=== PATIENT | female | born 1965 | race Caucasian/White ===

== ENCOUNTER 2018-12-04 11:06 | Emergency (ER) | payer MEDICAID, OTHER ==
[~2018-12-04] VITALS: Ht 154.9 cm; Wt 78.5 kg
[2018-12-04 11:09] VITALS: BP 172/90
--- NOTE | 2018-12-04 11:15 | NUR ---
PT AMBULATED TO ER BED 02
--- NOTE | 2018-12-04 11:20 | NUR ---
C/O L ARM PAIN X3 DAYS, DENIES TRAUMA/INJURY. PER PT SHE WOKE UP 3 DAYS AGO WITH THE ARM PAIN. PT STATES SHE TOOK A NORCO 10/325 LAST NIGHT AND IT PROVIDED SOME PAIN RELIEF. DENIES NUMBNESS/TINGLING, PT HAS FULL ROM WITH SOME PAIN, CAP REFIL <3 SECONDS, +2 RADIAL PULSE, DENIES N/V/D; SKIN IS PINK/WARM/DRY; AAOX4 WITH EVEN AND STEADY GAIT; LUNGS CLEAR BL; HR EVEN AND REGULAR; BLOOD PRESSURE SLIGHTLY ELEVATED 161/74, ERMD AWARE. PATIENT POSITIONED FOR COMFORT; HOB ELEVATED; BEDRAILS UP X1; BED DOWN. ER MD MADE AWARE OF PT STATUS.
[2018-12-04] MEDS ORDERED: MORPHINE SULFATE 4 MG/ML SYR IM ONE (12:55)
--- NOTE | 2018-12-04 13:13 | NUR ---
IM MEDS GIVEN-NADR AT THIS TIME
[2018-12-04 13:34] VITALS: BP 155/72
--- NOTE | 2018-12-04 13:35 | NUR ---
Patient discharged with v/s stable. Written and verbal after care instructions given and explained. Patient alert, oriented and verbalized understanding of instructions. Ambulatory with steady gait. All questions addressed prior to discharge. ID band removed. Patient advised to follow up with PMD. Rx of CIPRO, NORCO given. Patient educated on indication of medication including possible reaction and side effects. Opportunity to ask questions provided and answered.
== END 2018-12-04 13:35 | disposition home or self-care (01) ==
LOC: MED 11:06
DX: M79.602 Pain in left arm (principal); N39.0 Urinary tract infection, site not specified
CPT/HCPCS: 81002; 81025; 96372; 99283; J2270

== ENCOUNTER 2019-07-09 05:46 | Day surgery (SDC) | payer OTHER ==
[~2019-07-09] VITALS: Ht 162.6 cm; Wt 78.9 kg
[2019-07-09] MEDS ORDERED: LIDOCAINE 2% 100 MG/5 ML UJET TP ONE (07:38)
[2019-07-09] MEDS ORDERED: fentaNYL 0.05 MG/ML VIAL ONE (07:38)
[2019-07-09] MEDS ORDERED: MIDAZOLAM 2 MG/2 ML VIAL ONE (07:38)
[2019-07-09] MEDS ORDERED: fentaNYL 0.05 MG/ML VIAL IVP ONE (09:50)
[2019-07-09] MEDS ORDERED: MIDAZOLAM 2 MG/2 ML VIAL IVP ONE (09:50)
== END 2019-07-09 09:00 | disposition home or self-care (01) ==
LOC: MDS 05:46 → MMU 06:04 → MDS 09:00
PROVIDERS: ATTEND Internal Medicine Gastroenterology
DX: Z12.11 Encounter for screening for malignant neoplasm of colon (principal); D12.8 Benign neoplasm of rectum; D12.5 Benign neoplasm of sigmoid colon; K29.70 Gastritis, unspecified, without bleeding; E66.9 Obesity, unspecified; K57.30 Diverticulosis of large intestine without perforation or abscess without bleeding; Z98.84 Bariatric surgery status; Z90.49 Acquired absence of other specified parts of digestive tract; Z68.30 Body mass index [BMI] 30.0-30.9, adult
CPT/HCPCS: 36415; 43239; 45385; 81025; 86677; J2250; J3010

== ENCOUNTER 2021-03-12 13:36 | Emergency (ER) | payer MEDICAID, OTHER ==
[~2021-03-12] VITALS: Ht 157.5 cm; Wt 83.9 kg
[2021-03-12 13:42] VITALS: BP 134/84
--- NOTE | 2021-03-12 13:42 | NUR ---
TO BED AMBULATORY
--- NOTE | 2021-03-12 13:55 | NUR ---
EMT at bedside for EKG.
--- NOTE | 2021-03-12 14:05 | NUR ---
55 y/o F BIB self from home with c/c left forearm pain and chest pain. Patient A&Ox4, ambulatory, states this morning she began experiencing left sided chest pain that she rates 8/10, pressure/intermittent, non-radiating. Patient also states dizziness and anxiety. Patient reports left side forearm numbness/tingling x 2 days. Patient reports pain cream without relief. Denies N/V/D, fever, chills, headache, dysuria. Last BM today normal. Denies any medications prior to arrival. Bed locked in lowest position, side rails x1, call light in reach. PMH/Meds/Allergies: Denies Sx: Gastric bypass 2017
--- NOTE | 2021-03-12 14:08 | NUR ---
ERMD is evaluating patient at bedside.
[2021-03-12] MEDS ORDERED: NITROGLYCERIN 0.4 MG TAB SL ONE (14:15)
[2021-03-12] MEDS ORDERED: ASPIRIN 325 MG TAB PO ONE (14:15)
[2021-03-12] MEDS ORDERED: LORazepam 0.5 MG TAB PO ONE (14:20)
--- NOTE | 2021-03-12 14:25 | NUR ---
Lab at bedside.
[2021-03-12 14:48] LABS: BASOPHILS # (AUTO) 0.2 K/uL (0.00-0.22); BASOPHILS % (AUTO) 2.7 % (0.0-2.0); EOSINOPHILS # (AUTO) 0.1 K/uL (0-0.4); EOSINOPHILS % (AUTO) 1.3 % (0.0-4.0); HEMATOCRIT 34.2 % (36-48); HEMOGLOBIN 11.4 g/dL (12.0-16.0); LYMPHOCYTES # (AUTO) 1.7 K/uL (2.5-16.5); LYMPHOCYTES % (AUTO) 24.9 % (20.5-51.1); MEAN CORPUSCULAR HEMOGLOBIN 28 pg (27-31); MEAN CORPUSCULAR HGB CONC 33 g/dL (33-37); MEAN CORPUSCULAR VOLUME 84.3 fL (80-94); MONOCYTES # (AUTO) 0.3 K/uL (0.8-1.0); MONOCYTES % (AUTO) 4.8 % (1.7-9.3); NEUTROPHILS # (AUTO) 4.4 K/uL (1.8-7.7); NEUTROPHILS % (AUTO) 66.3 % (42.2-75.2); PLATELET COUNT (AUTO) 289 K/uL (140-450); RED BLOOD CELL COUNT(AUTO) 4.06 MIL/uL (4.20-5.40); RED CELL DISTRIBUTION WIDTH 14.9 % (11.6-13.7); WHITE BLOOD COUNT (AUTO) 6.6 K/uL (4.8-10.8)
[2021-03-12 15:08] LABS: ALBUMIN 3.9 g/dL (3.4-5.0); ANION GAP 10.9 (8-16); CARBON DIOXIDE 27.1 mmol/L (21-32); CREATININE 0.6 mg/dL (0.6-1.3); TOTAL BILIRUBIN 0.3 mg/dL (0.0-1.0)
--- NOTE | 2021-03-12 15:36 | NUR ---
Dr. Chavez made aware of HR 47, at bedside evaluating patient at this time.
--- NOTE | 2021-03-12 15:39 | NUR ---
Acknowledged repeat Troponin 2 hrs from initial draw: 1425.
--- NOTE | 2021-03-12 15:40 | NUR ---
Patient reports pain to left upper arm; Dr. Chavez at bedside made aware
[2021-03-12] MEDS ORDERED: ATROPINE 0.4 MG/ML VIAL IVP ONE (15:45)
[2021-03-12] MEDS ORDERED: ATROPINE 1 MG/10 ML SYR IVP ONE (15:55)
--- NOTE | 2021-03-12 16:35 | NUR ---
Lab at bedside.
--- NOTE | 2021-03-12 16:45 | NUR ---
Patient resting in position of comfort. supply planner remains in place; HR 51. RR even/unlabored. Bed locked in lowest position, side rails x 1, call light in reach.
[2021-03-12] MEDS ORDERED: HYDR-1093 PO (17:39)
--- NOTE | 2021-03-12 17:50 | NUR ---
Dr. Chavez is reevaluating patient at bedside.
[2021-03-12] MEDS ORDERED: ACETAMINOPHEN EXTRA STRENGTH 500 MG TAB PO ONE (18:00)
[2021-03-12 18:05] VITALS: BP 116/66
== END 2021-03-12 18:05 | disposition home or self-care (01) ==
LOC: MED 13:36
DX: R00.1 Bradycardia, unspecified (principal); Z98.84 Bariatric surgery status
CPT/HCPCS: 36415; 71045; 80053; 84484; 85025; 93005; 96374; 99285; J0461

== ENCOUNTER 2021-03-26 20:05 | Inpatient (IN) | payer OTHER, SELFPAY ==
[~2021-03-26] VITALS: Ht 157.5 cm; Wt 88.5 kg
[~2021-03-26 20:05] MED LIST: HYDR-1093 PO
[2021-03-26 20:50] VITALS: BP 94/68
--- NOTE | 2021-03-26 20:50 | NUR ---
TO TENT AMBULATORY
[2021-03-26] MEDS ORDERED: NACL 0.9% 1,000 ML IV ONE (21:45)
[2021-03-26 22:16] LABS: BASOPHILS % (AUTO) 0.4 % (0.0-2.0); HEMATOCRIT 37.8 % (36-48); HEMOGLOBIN 12.4 g/dL (12.0-16.0); LYMPHOCYTES # (AUTO) 1.1 K/uL (2.5-16.5); LYMPHOCYTES % (AUTO) 21.9 % (20.5-51.1); MEAN CORPUSCULAR HEMOGLOBIN 27 pg (27-31); MEAN CORPUSCULAR HGB CONC 33 g/dL (33-37); MEAN CORPUSCULAR VOLUME 83.7 fL (80-94); MONOCYTES # (AUTO) 0.4 K/uL (0.8-1.0); MONOCYTES % (AUTO) 7.6 % (1.7-9.3); NEUTROPHILS # (AUTO) 3.5 K/uL (1.8-7.7); NEUTROPHILS % (AUTO) 70.1 % (42.2-75.2); PLATELET COUNT (AUTO) 245 K/uL (140-450); RED BLOOD CELL COUNT(AUTO) 4.52 MIL/uL (4.20-5.40); RED CELL DISTRIBUTION WIDTH 14.6 % (11.6-13.7)
[2021-03-26 22:37] LABS: ALBUMIN 4.1 g/dL (3.4-5.0); ANION GAP 14.4 (8-16); CARBON DIOXIDE 26.7 mmol/L (21-32); CREATININE 1.1 mg/dL (0.6-1.3); POTASSIUM 4.1 mmol/L (3.5-5.1); TOTAL BILIRUBIN 0.4 mg/dL (0.0-1.0)
--- NOTE | 2021-03-27 00:47 | NUR ---
Dr. Vivas examining patient.
--- NOTE | 2021-03-27 00:47 | NUR ---
PT W/C ASSISTED TO ER BED 1
--- NOTE | 2021-03-27 00:48 | NUR ---
Addie cantu in [facility] - 03/27/21 at 0048 by SHAYNE PT W/C ASSISTED TO BED #1
[2021-03-27] MEDS ORDERED: NACL 0.9% 1,000 ML IV ONE (00:50)
--- NOTE | 2021-03-27 01:20 | NUR ---
55 YO/F BIB SELF ACCOMPANIED BY W CO DIZZYNESS AND LOW BLOOD PRESSURE X4DAYS. PATIENT ALSO REPORTS FEVERS, SLIGHT COUGH, HEADACHE BODY ACHES 9/10. PATIENT ALSO REPORTS EXPERIENCING DIARRHEA YESTERDAY. PATIENT DENIES N/V, CHEST PAIN OR SOB. PATIENT DENIES LOC. PATIENT AOX4, BREATHING EVEN AND UNLABORED, LUNG SOUNDS CLEAR THROUGHOUT. BOWEL SOUNDS PRESENT. PATIENT CONNECTED TO MONITOR BP AT 91/56, 60HR, 95 O2, 20 RR. PATIENT LAYING IN BED LOCKED IN LOWEST POSITION X2 SIDERAILS UP FOR PATIENT SAFETY, W 2L OF NS RUNNNING TO L WRIST IV. WILL CONTINUE TO MONITOR. PMH:DENIES NKA
[2021-03-27] MEDS ORDERED: ACETAMINOPHEN EXTRA STRENGTH 500 MG TAB PO ONE (02:50)
--- NOTE | 2021-03-27 03:10 | NUR ---
PATIENT PROVIDED BEDSIDE COMMODE, PATIENT AMBULATED TO BEDSIDE COMMODE W STEADY GAIT. PATIENT REPORTS SHE FEELS BETTER, SLIGHT DIZZINESS.
[2021-03-27 04:05] LABS: APPEARANCE,URINE SL CLOUDY (CLEAR); BILIRUBIN,URINE NEGATIVE (NEGATIVE); BLOOD, URINE NEGATIVE (NEGATIVE); COLOR,URINE YELLOW (YELLOW); LEUKOCYTE ESTERASE ,URINE 3+ (NEGATIVE); NITRITE, URINE NEGATIVE (NEGATIVE); UGLUCOSE NEGATIVE (NEGATIVE)
[2021-03-27 04:11] LABS: RBC,URINE 0-5 /HPF (0-5)
[2021-03-27] MEDS ORDERED: cefTRIAXone 1,000 MG VIAL ONE (05:03)
--- NOTE | 2021-03-27 06:25 | NUR ---
Blood cultures drawn and walked to lab.
[2021-03-27] MEDS ORDERED: ONDANSETRON 4 MG/2 ML VIAL IVP PRN (06:35)
[2021-03-27] MEDS ORDERED: MAG SULF 2000 MG/WATER PREMIX 50 ML IV PRN (06:35)
[2021-03-27] MEDS ORDERED: MAGNESIUM OXIDE 400 MG TAB PO PRN (06:35)
[2021-03-27] MEDS ORDERED: KCL 20 MEQ/WATER INJ PREMIX 200 ML IV PRN (06:35)
--- NOTE | 2021-03-27 07:20 | NUR ---
Pt report given to OLIVERIO GORDILLO. Transfer of care at this time.
--- NOTE | 2021-03-27 07:32 | NUR ---
ASSUMED CARE OF THIS PATIENT, REPORT RECEIVED. ARAKSIA IS RESTING QUIETLY, TALKING TO FAMILY VIA PHONE, PATIENT IS TALKATIVE AND APPEARS TO BE IN NO DISTRESS, VSS, SKIN IS WARM, DRY, RESP EVEN AND UNLABORED, VOICES NO NEEDS AT THIS TIME.
[2021-03-27] MEDS: NACL 0.9% 1,000 ML IV SCH ×2 (08:57→19:05)
--- NOTE | 2021-03-27 11:06 | NUR ---
OOB, BM X 1, SAT IN A CHAIR FOR A WHILE. ASSISTED BACK TO BED WITH ASSIST, POSITIONED FOR COMFORT, C/O FEELING COLD, TEMP 100.1, REQUESTED TYLENOL.
--- NOTE | 2021-03-27 11:53 | NUR ---
CHECKED ON PATIENT, RESTING COMFORTABLY, OFFERS NO NEEDS AT THIS TIME. NSR WITH OCC PVC'S NOTED PER MONITOR, ONE PAIR NOTED.
[2021-03-27] MEDS: ACETAMINOPHEN 325 MG TAB PO PRN (12:25)
--- NOTE | 2021-03-27 13:40 | NUR ---
RESTING QUIETLY, IVF INFUSING TO PATENT CLEAR IV, TEMP MONITORED.
--- NOTE | 2021-03-27 14:46 | NUR ---
PATIENT REPORTS FEELING BETTER, SITTING UP TO EAT. REPORT CALLED TO HANNAH, READY FOR TRANSPORT TO ROOM 114.
--- NOTE | 2021-03-27 14:49 | NUR ---
Patient will be admitted to care of . Admited to TELE ISOLATION. Will go to room. Belongings list completed. Report to HANNAH Jacobo.
--- NOTE | 2021-03-27 15:00 | NUR ---
RECEIVED REPORT FROM ER NURSE FOR CONTINUITY OF CARE. PT ARRIVED TO UNIT VIA GURNEY. A&OX4. ALERT AND AWAKE. ON RA WITH BREATHING UNLABORED. PT IS AMBULATORY INDEPENDENTLY. SKIN IS WARM, DRY, AND INTACT. IV IS IN THE LEFT WRIST 22 GAUGE RUNNING NS AT 80 ML PER HOUR PER ORDER. PT IS STABLE AT THIS TIME. DROPLET PRECAUTIONS FOR COVID POSITIVE. PLAN OF CARE DISCUSSED.
[2021-03-27 15:20] VITALS: BP 117/81
[2021-03-27 16:00] VITALS: BP 114/85
--- NOTE | 2021-03-27 16:27 | NUR ---
PATIENT HAS BEEN SCREENED AND CATEGORIZED MODERATE NUTRITION RISK. PATIENT WILL BE SEEN WITHIN 3-5 DAYS OF ADMISSION. 03/29/21 03/31/[address]
--- NOTE | 2021-03-27 17:00 | NUR ---
PT RECEIVED FOOD FROM THROUGH FRONT LOBBY. PT WAS ABLE TO EAT 25% OF FOOD. PT STATES SHE IS DRINKING LOTS OF WATER. TEMP IS AT 99.7 F. FEVER IS GOING DOWN. WILL CONTINUE TO MONITOR PT.
--- NOTE | 2021-03-27 19:10 | NUR ---
ENDORSED PT TO MACHINE WHITENER NURSE FOR CONTINUITY OF CARE. PT IS STABLE. PLAN OF CARE DISCUSSED.
--- NOTE | 2021-03-27 19:15 | NUR ---
RECEIVED REPORT FROM AM SHIFT NURSE. PATIENT RESTING IN BED. NO SOB NOTED. IVF NS INFUSING AT 80 ML ON THE LEFT WRIST TOLERATING WELL. SKIN WARM AND DRY TO TOUCH. AFEBRILE. SAFETY MEASURES IN PLACE. CALL LIGHT WITHIN REACH.
[2021-03-27 20:00] VITALS: BP 130/86
--- NOTE | 2021-03-27 20:02 | NUR ---
COMPLAINED OF MILD HEADACHE TYLENOL 650MG PRN GIVEN.
[2021-03-28] VITALS: BP 116/86
--- NOTE | 2021-03-28 03:03 | NUR ---
PATIENT IS ASLEEP. NO S/S OF RESPIRATORY DISTRESS. ALL SAFETY PRECAUTIONS IN PLACE. CALL LIGHT WITHIN REACH.
[2021-03-28 04:00] VITALS: BP 128/77
[2021-03-28] MEDS: HYDROcodone/APAP 5/325 MG 1 TAB TAB PO PRN ×3 (04:49→20:45)
[2021-03-28] MEDS: NACL 0.9% 1,000 ML IV SCH ×3 (05:24→20:45)
[2021-03-28] MEDS: MORPHINE SULFATE 4 MG/ML SYR IVP PRN (06:05)
[2021-03-28 07:01] LABS: BASOPHILS % (AUTO) 0.4 % (0.0-2.0); HEMATOCRIT 29.3 % (36-48); HEMOGLOBIN 9.8 g/dL (12.0-16.0); LYMPHOCYTES # (AUTO) 1.2 K/uL (2.5-16.5); LYMPHOCYTES % (AUTO) 28.3 % (20.5-51.1); MEAN CORPUSCULAR HEMOGLOBIN 27 pg (27-31); MEAN CORPUSCULAR HGB CONC 33 g/dL (33-37); MEAN CORPUSCULAR VOLUME 81.9 fL (80-94); MONOCYTES # (AUTO) 0.3 K/uL (0.8-1.0); MONOCYTES % (AUTO) 6.6 % (1.7-9.3); NEUTROPHILS # (AUTO) 2.7 K/uL (1.8-7.7); NEUTROPHILS % (AUTO) 64.7 % (42.2-75.2); PLATELET COUNT (AUTO) 163 K/uL (140-450); RED BLOOD CELL COUNT(AUTO) 3.58 MIL/uL (4.20-5.40); RED CELL DISTRIBUTION WIDTH 14.3 % (11.6-13.7); WHITE BLOOD COUNT (AUTO) 4.2 K/uL (4.8-10.8)
[2021-03-28 07:22] LABS: PROTHROMBIN TIME 10.4 secs (10.8-13.4)
--- NOTE | 2021-03-28 07:30 | NUR ---
ENDORSED TO THE AM RN FOR CONTINUITY OF CARE. PATIENT IS STABLE.
--- NOTE | 2021-03-28 07:32 | NUR ---
RECEIVED REPORT FROM HYPERION ANALYST NURSE FOR CONTINUITY OF CARE. A&OX4, ABLE TO MAKE NEEDS KNOWN. RESPIRATIONS EVEN AND UNLABORED. ON RA WITH BREATHING UNLABORED. PT IS AMBULATORY INDEPENDENTLY. SKIN IS WARM, DRY, AND INTACT. IV IS IN THE LEFT WRIST 22 GAUGE RUNNING NS AT 80 ML PER HOUR PER ORDER. PT IS STABLE AT THIS TIME AND DENIES PAIN. PLAN OF CARE DISCUSSED. DROPLET PRECAUTIONS IN PLACE. SAFETY PRECAUTIONS IN PLACE. CALL LIGHT WITHIN REACH. WILL CONTINUE TO MONITOR.
[2021-03-28 07:33] LABS: ANION GAP 14.2 (8-16); CREATININE 0.5 mg/dL (0.6-1.3); POTASSIUM 3.2 mmol/L (3.5-5.1); TOTAL BILIRUBIN 0.2 mg/dL (0.0-1.0)
[2021-03-28 08:00] VITALS: BP 95/59
[2021-03-28] MEDS: POTASSIUM CHLORIDE 10 MEQ TABER PO PRN (08:55)
--- NOTE | 2021-03-28 09:30 | NUR ---
NO SCHEDULED MEDICATIONS GIVEN. ADMINISTERED K-DUR FOR PATIENT'S K LVL OF 3.2. PT IS STABLE. NO DISTRESS NOTED. WILL CONTINUE TO MONITOR.
[2021-03-28] MEDS: ACETAMINOPHEN 325 MG TAB PO PRN ×2 (11:50→20:45)
--- NOTE | 2021-03-28 11:50 | NUR ---
PATIENT COMPLAINED OF BEAULIEU 3/10. ADMINISTERED PRN PAIN MEDICATIONS PER MD ORDERED.
--- NOTE | 2021-03-28 11:55 | NUR ---
DC PLANNING: PATIENT IN COVID ISOLATION, UNABLE TO REACH BY PHONE. CM SPOKE WITH HER RHETT BY PHONE, PATIENT IS INDEPENDENT IN ALL ACTIVITIES, HAS H/O GASTRIC SLEEVE, NO OTHER HEALTH ISSUES. NO DME, STATES HIS COVID TEST IS PENDING RESULTS AND HAS HAD HIS FIRST VACCINATION OF A SERIES OF TWO. IS PREPARED FOR PATIENT TO COME HOME, ENCOURAGED HIM TO OFFER PATIENT FLUIDS, MAKE SURE SHE HAS PO INTAKE. RHETT STATES HE IS PREPARED FOR HER COVID MANAGEMENT AT HOME. CM WILL FOLLOW FOR NEEDS.
[2021-03-28 12:00] VITALS: BP 97/57
--- NOTE | 2021-03-28 13:30 | NUR ---
CHECKED ON PATIENT. PATIENT ASLEEP. NOTED CHEST RISE AND FALL. NO DISTRESS NOTED. WILL CONTINUE TO MONITOR.
--- NOTE | 2021-03-28 15:29 | NUR ---
PATIENT COMPLAINED OF FEELING HOT. CHECKED PT TEMPERATURE AND IT WAS 101.0 F. PLACED ICE PACKS ON PATIENT'S AXILLARY AREA AND ONE ON THE HEAD. COOLING MEASURES IN PLACE. WILL RECHECK TEMP IN THE NEXT HOUR.
--- NOTE | 2021-03-28 15:34 | NUR ---
PATIENT COMPLAINED OF GENERALIZED PAIN 6/10. ADMINISTERED PRN PAIN MEDICATIONS PER MD ORDERED.
[2021-03-28 16:00] VITALS: BP 103/55
--- NOTE | 2021-03-28 17:06 | NUR ---
CHECKED ON PATIENT. PATIENT IS STABLE. NO DISTRESS NOTED. WILL CONTINUE TO MONITOR.
--- NOTE | 2021-03-28 19:12 | NUR ---
ENDORSED TO MECHANICAL INSPECTOR NURSE FOR CONTINUITY OF CARE. PT IS STABLE.
--- NOTE | 2021-03-28 19:14 | NUR ---
RECEIVED REPORT FROM AM NURSE. PATIENT ON BED RESTING. NO S/S OF RESPIRATORY DISTRESS. SKIN WARM AND DRY TO TOUCH. AFEBRILE. STILL WITH MILD GENERALIZED PAIN. WILL CONTINUE TO MONITOR.
[2021-03-28 20:00] VITALS: BP 92/58
--- NOTE | 2021-03-28 20:45 | NUR ---
COMPLAINED OF MODERATE PAIN, GENERALIZED, MEDICATED. PATIENT IS FEBRILE, MEDICATED. COOLING MEASURES RENDERED.
[2021-03-29] VITALS: BP 95/52
[2021-03-29 04:00] VITALS: BP 100/62
--- NOTE | 2021-03-29 04:00 | NUR ---
PATIENT WITH ON AND OFF FEVER, MEDICATED AND COOLING MEASURES DONE.
[2021-03-29] MEDS: ACETAMINOPHEN 325 MG TAB PO PRN ×2 (04:42→16:57)
[2021-03-29 06:34] LABS: BASOPHILS % (AUTO) 0.5 % (0.0-2.0); HEMATOCRIT 29.6 % (36-48); HEMOGLOBIN 9.9 g/dL (12.0-16.0); LYMPHOCYTES # (AUTO) 1.1 K/uL (2.5-16.5); LYMPHOCYTES % (AUTO) 25.8 % (20.5-51.1); MEAN CORPUSCULAR HEMOGLOBIN 28 pg (27-31); MEAN CORPUSCULAR HGB CONC 34 g/dL (33-37); MONOCYTES # (AUTO) 0.2 K/uL (0.8-1.0); MONOCYTES % (AUTO) 5.2 % (1.7-9.3); NEUTROPHILS # (AUTO) 2.9 K/uL (1.8-7.7); NEUTROPHILS % (AUTO) 68.5 % (42.2-75.2); PLATELET COUNT (AUTO) 166 K/uL (140-450); RED BLOOD CELL COUNT(AUTO) 3.61 MIL/uL (4.20-5.40); RED CELL DISTRIBUTION WIDTH 14.4 % (11.6-13.7); WHITE BLOOD COUNT (AUTO) 4.3 K/uL (4.8-10.8)
[2021-03-29 06:58] LABS: PROTHROMBIN TIME 10.1 secs (10.8-13.4)
[2021-03-29 07:11] LABS: ALBUMIN 2.9 g/dL (3.4-5.0); ANION GAP 13.3 (8-16); CREATININE 0.6 mg/dL (0.6-1.3); MAGNESIUM 1.9 mg/dL (1.8-2.4); POTASSIUM 3.3 mmol/L (3.5-5.1); TOTAL BILIRUBIN 0.3 mg/dL (0.0-1.0)
--- NOTE | 2021-03-29 07:15 | NUR ---
RECEIVED BEDSIDE REPORT FROM BOX TOE CEMENTER NURSE FOR CONTINUITY OF CARE. PT IS AWAKE AND ALERT, A&OX4. ON TELE MONITOR. ON RA WITH BREATHING UNLABORED. PT IS AMBULATORY INDEPENDENTLY. SKIN IS WARM, DRY, AND INTACT. IV IS IN THE LEFT WRIST 22 GAUGE RUNNING NS AT 80 ML PER HOUR PER ORDER. PT IS STABLE. PLAN OF CARE DISCUSSED.
--- NOTE | 2021-03-29 07:24 | NUR ---
ENDORSED TO AM RN FOR CONTINUITY OF CARE. PATIENT IS IN STABLE CONDITION.
[2021-03-29 08:00] VITALS: BP 98/60
[2021-03-29] MEDS: POTASSIUM CHLORIDE 10 MEQ TABER PO PRN (08:24)
--- NOTE | 2021-03-29 08:24 | NUR ---
K DUR 40 MEQ WAS GIVEN ORDERED PRN FOR POTASSIUM LEVEL OF 3.3. MEDICATION EDUCATION WAS PROVIDED AND PT VERBALIZED UNDERSTANDING.
[2021-03-29] MEDS: NACL 0.9% 1,000 ML IV SCH ×2 (08:36→22:00)
--- NOTE | 2021-03-29 09:30 | NUR ---
PT IS AWAKE AND ALERT. DENIES ANY PAIN AT THIS TIME. BREATHING UNLABORED ON RA. IV IS INTACT. COOLING MEASURES IMPLEMENTED FOR FEVER OF 99.0 F. WILL CONTINUE TO MONITOR.
--- NOTE | 2021-03-29 11:24 | NUR ---
PT IS UP TO THE RESTROOM. NO RESPIRATORY DISTRESS NOTED. BREATHING IS UNLABORED ON RA. PT USING IV POLE FOR STABILITY. IV IS PATENT AND INFUSING ORDERED. GAIT IS STEADY.
[2021-03-29 12:00] VITALS: BP 114/71
[2021-03-29] MEDS: HYDROcodone/APAP 5/325 MG 1 TAB TAB PO PRN (12:25)
--- NOTE | 2021-03-29 12:25 | NUR ---
PT STATES SHE HAS PAIN ALL OVER HER BODY AT A SCALE OF 6/10. PT ALSO STATES THAT SHE HAS A HEADACHE. PT'S TEMP IS 100.8 F. PT WAS GIVEN NORCO FOR PAIN AND FEVER. COOLING MEASURES WERE PLACED. WILL CONTINUE TO MONITOR.
--- NOTE | 2021-03-29 14:30 | NUR ---
PT IS ASLEEP IN SEMI FOWLERS POSITION. NO RESPIRATORY DISTRESS NOTED. CHEST RISE AND FALL IS SYMMETRICAL. PT IS ON RA. PT IS STABLE.
[2021-03-29 16:00] VITALS: BP 108/60
--- NOTE | 2021-03-29 16:13 | NUR ---
ROUNDED ON PT. SHE IS LAYING IN BED ON CELL PHONE. NO DISTRESS NOTED. BREATHING IS UNLABORED. NO COUGHING AT THIS TIME. PT DENIES PAIN. WILL CONTINUE TO MONITOR.
--- NOTE | 2021-03-29 16:57 | NUR ---
PT WAS GIVEN TYLENOL FOR FEVER OF 101.5 F. COOLING MEASURES IMPLEMENTED. WILL MONITOR TEMP.
--- NOTE | 2021-03-29 18:21 | NUR ---
ROUNDED ON PT. SHE IS SLEEPING. NO DISTRESS NOTED. NO COUGHING OR SOB. PT IS ON RA. O2 SAT IS 97%. PT IS STABLE.
[2021-03-29] MEDS ORDERED: remdesivir COMMUNICATION ORDER 1 EA MISC MC PRN (18:45)
--- NOTE | 2021-03-29 18:55 | NUR ---
RECEIVED A PHONE CALL FROM PHARMACY. THE PHARMACIST STATED THAT THE PT DOES NOT MEET THE CRITERIA FOR REMDESIVIR BECAUSE SHE IS ON RA AND THE O2 SAT IS ABOVE 94%. SHE ALSO SAID THAT SHE WILL HAVE TO VERIFY WITH HER PRIVATE EYE IN THE MORNING. RELAYED THIS INFORMATION TO DR. MARSHALL. DOCTOR IS AWARE.
--- NOTE | 2021-03-29 19:15 | NUR ---
ENDORSED PT TO CLINICAL ACCOUNT LIAISON NURSE FOR CONTINUITY OF CARE. PT IS STABLE. PLAN OF CARE DISCUSSED.
--- NOTE | 2021-03-29 19:20 | NUR ---
RECEIVED REPORT FROM AM NURSE. FOR CONTINUITY OF CARE. PATIENT IN BED AWAKE, NO S/S OF SOB NOTED. SAFETY MEASURES IN PLACE. CALL LIGHT WITHIN REACH. NO COMPLAINTS OF PAIN AT THIS TIME.
[2021-03-29 20:00] VITALS: BP 118/73
--- NOTE | 2021-03-29 21:30 | NUR ---
IV PULLED OUT, REINSERTED
[2021-03-29] MEDS: ALBUMIN HUMAN 25% 100 ML IV SCH (21:50)
[2021-03-30] VITALS: BP 106/64
[2021-03-30] MEDS: MORPHINE SULFATE 4 MG/ML SYR IVP PRN ×2 (00:39→18:45)
--- NOTE | 2021-03-30 00:39 | NUR ---
COMPLAINED OF SEVERE PAIN, MEDICATED WITHI MORPHINE ORDERED. AFEBRILE. CALL LIGHT WITHIN REACH.
[2021-03-30 04:00] VITALS: BP 104/66
[2021-03-30] MEDS: ALBUMIN HUMAN 25% 100 ML IV SCH ×2 (04:41→13:41)
[2021-03-30] MEDS: ACETAMINOPHEN 325 MG TAB PO PRN ×2 (04:55→11:07)
[2021-03-30 06:51] LABS: BASOPHILS % (AUTO) 0.1 % (0.0-2.0); HEMATOCRIT 28.4 % (36-48); HEMOGLOBIN 9.5 g/dL (12.0-16.0); LYMPHOCYTES # (AUTO) 1.4 K/uL (2.5-16.5); LYMPHOCYTES % (AUTO) 39.6 % (20.5-51.1); MEAN CORPUSCULAR HEMOGLOBIN 28 pg (27-31); MEAN CORPUSCULAR HGB CONC 34 g/dL (33-37); MEAN CORPUSCULAR VOLUME 82.4 fL (80-94); MONOCYTES # (AUTO) 0.2 K/uL (0.8-1.0); MONOCYTES % (AUTO) 6.5 % (1.7-9.3); NEUTROPHILS # (AUTO) 1.9 K/uL (1.8-7.7); NEUTROPHILS % (AUTO) 53.8 % (42.2-75.2); PLATELET COUNT (AUTO) 192 K/uL (140-450); RED BLOOD CELL COUNT(AUTO) 3.45 MIL/uL (4.20-5.40); RED CELL DISTRIBUTION WIDTH 14.1 % (11.6-13.7); WHITE BLOOD COUNT (AUTO) 3.6 K/uL (4.8-10.8)
[2021-03-30 07:04] LABS: ALBUMIN 3.5 g/dL (3.4-5.0); ANION GAP 13.1 (8-16); CARBON DIOXIDE 25.3 mmol/L (21-32); CREATININE 0.5 mg/dL (0.6-1.3); MAGNESIUM 2.1 mg/dL (1.8-2.4); POTASSIUM 3.4 mmol/L (3.5-5.1); TOTAL BILIRUBIN 0.3 mg/dL (0.0-1.0)
[2021-03-30 07:09] LABS: PROTHROMBIN TIME 10.4 secs (10.8-13.4)
--- NOTE | 2021-03-30 07:15 | NUR ---
ENDORSED TO AM NURSE FOR CONTINUITY OF CARE. PATIENT IS STABLE.
--- NOTE | 2021-03-30 07:20 | NUR ---
ENDORSED TO AM NURSE FOR CONTINUITY OF CARE. PATIENT IS STABLE.
--- NOTE | 2021-03-30 07:25 | NUR ---
RECEIVED REPORT FROM INHALATION THERAPY TEACHER NURSE FOR CONTINUITY OF CARE. A&OX4, ABLE TO MAKE NEEDS KNOWN. RESPIRATIONS EVEN AND UNLABORED. ON RA WITH BREATHING UNLABORED. PT IS AMBULATORY INDEPENDENTLY. SKIN IS WARM, DRY, AND INTACT. IV IS IN THE LEFT WRIST 22 GAUGE INFUSING FLUIDS WELL. PT IS STABLE AT THIS TIME AND DENIES PAIN. PLAN OF CARE DISCUSSED. DROPLET PRECAUTIONS IN PLACE. SAFETY PRECAUTIONS IN PLACE. CALL LIGHT WITHIN REACH. WILL CONTINUE TO MONITOR.
[2021-03-30 08:00] VITALS: BP 105/64
[2021-03-30] MEDS: NACL 0.9% 1,000 ML IV SCH ×2 (09:35→20:11)
--- NOTE | 2021-03-30 09:41 | NUR ---
NO SCHEDULED MEDICATIONS GIVEN. PT IS STABLE. DENIES PAIN AND NO DISTRESS NOTED. WILL CONTINUE TO MONITOR.
[2021-03-30] MEDS ORDERED: remdesivir CLINICAL MONITORING 1 EA MISC MC PRN (11:00)
[2021-03-30] MEDS: POTASSIUM CHLORIDE 10 MEQ TABER PO PRN (11:06)
--- NOTE | 2021-03-30 11:07 | NUR ---
PATIENT WAS COMPLAINING OF BEAULIEU 11/01. ADMINISTERED TYLENOL PRN PER MD ORDERED.
--- NOTE | 2021-03-30 11:15 | NUR ---
PATIENT COMPLAINED OF SOB. ASSESS PATIENT'S O2 SATURATION IS AT 90%. PLACED A 2L NC AND O2 SATURATION IS AT 99%
[2021-03-30 12:00] VITALS: BP 116/73
[2021-03-30] MEDS ORDERED: REMDESIVIR. 200 MG in NACL 0.9% 100 ML IV SCH (12:00)
--- NOTE | 2021-03-30 13:47 | NUR ---
ALL SCHEDULED MEDS GIVEN. PT IS STABLE. NO DISTRESS NOTED. WILL CONTINUE TO MONITOR.
--- NOTE | 2021-03-30 15:35 | NUR ---
03/30/21 RD INITIAL ASSESSMENT COMPLETED PLEASE REFER TO NUTRITION ASSESSMENT UNDER CARE ACTIVITY FOR ESTIMATED NUTRITIONAL NEEDS. 1. CONTINUE REGULAR DIET TOLERATED 2. RECOMMEND TO ADD ENSURE BID 3. RD TO FOLLOW-UP 3-5 DAYS, MODERATE RISK LAURA DE LA ROSA RD
--- NOTE | 2021-03-30 15:45 | NUR ---
CHECKED ON PATIENT. PATIENT IS STABLE. DENIES PAIN AND NO S/S OF RESPIRATORY DISTRESS NOTED. WILL CONTINUE TO MONITOR.
[2021-03-30 16:00] VITALS: BP 134/85
--- NOTE | 2021-03-30 16:00 | NUR ---
DR. MARSHALL APPROVED RECOMMENDATIONS FOR VITAMIN C, VITAMIN D AND MULTIVITAMIN ONCE DAILY.
--- NOTE | 2021-03-30 16:00 | NUR ---
PATIENT 02 SATURATION AT 99%. TITRATED DOWN TO ROOM AIR. PATIENT SATURATING AT 96%. DENIES PAIN OR S/S OF RESPIRATORY DISTRESS. WILL CONTINUE TO MONITOR.
--- NOTE | 2021-03-30 18:45 | NUR ---
PATIENT COMPLAINED OF 9/10 GENERALIZED PAIN. ADMINISTERED PRN PAIN MEDICATIONS PER MD ORDERED.
--- NOTE | 2021-03-30 19:30 | NUR ---
ENDORSED TO PHLEBOTOMY INSTRUCTOR NURSE FOR CONTINUITY OF CARE. PT IS STABLE.
--- NOTE | 2021-03-30 19:35 | NUR ---
RECIEVED BEDSIDE ENDORSEMENT FROM DAY SHIFT RN, PT LYING IN BED RESTING, A&OX4, ABLE TO MAKE NEEDS KNOWN AND FOLLOWS COMMANDS, AFEBRILE, VSS, SR ON MONITOR, ON ROOM AIR, ABD SOFT AND NON TENDER TO TOUCH, CONTINENT AND ABLE TO USE BEDSIDE URINAL, FLACC 0, LW 22 G PIV INFUSING NS @ 80MLS/HR, SKIN WARM DRY AND INTACT, PT SHOWING NO SIGNS OF ACUTE DISTRESS, SAFETY MEASURES IN PLACE
[2021-03-30 20:00] VITALS: BP 108/66
[2021-03-31] VITALS: BP 111/68
--- NOTE | 2021-03-31 00:25 | NUR ---
PT APPEARS TO BE ASLEEP AND SHOWING NO SIGNS OFACUTE DISTRESS
--- NOTE | 2021-03-31 03:20 | NUR ---
PT APPEARS TO BE ASLEEP AND SHOWING NO SIGNS OF ACUTE DISTRESS
[2021-03-31 04:00] VITALS: BP 129/73
--- NOTE | 2021-03-31 05:17 | NUR ---
ADMINISTERED 0600H MEDICATION PER MD ORDERS
--- NOTE | 2021-03-31 07:31 | NUR ---
ENDORSED TO DAY SHIFT RN FOR CONTINUITY OF CARE
--- NOTE | 2021-03-31 07:32 | NUR ---
RECEIVED REPORT FROM FOOD CONSULTANT NURSE FOR CONTINUITY OF CARE. A&OX4, ABLE TO MAKE NEEDS KNOWN. RESPIRATIONS EVEN AND UNLABORED. ON RA WITH BREATHING UNLABORED. PT IS AMBULATORY INDEPENDENTLY. SKIN IS WARM, DRY, AND INTACT. IV IS IN THE LEFT WRIST 22 GAUGE INFUSING FLUIDS WELL. PT IS STABLE AT THIS TIME AND DENIES PAIN. PLAN OF CARE DISCUSSED. DROPLET PRECAUTIONS IN PLACE. SAFETY PRECAUTIONS IN PLACE. CALL LIGHT WITHIN REACH. WILL CONTINUE TO MONITOR.
[2021-03-31 08:00] VITALS: BP 127/80
[2021-03-31] MEDS: MULTIVITAMIN/MINERALS 1 TAB PO SCH (08:59)
[2021-03-31] MEDS: VITAMIN D 400 IU TAB PO SCH (08:59)
[2021-03-31] MEDS: ASCORBIC ACID 500 MG TAB PO SCH (08:59)
[2021-03-31 09:01] LABS: BASOPHILS % (AUTO) 0.5 % (0.0-2.0); EOSINOPHILS % (AUTO) 0.2 % (0.0-4.0); HEMATOCRIT 29.5 % (36-48); HEMOGLOBIN 9.8 g/dL (12.0-16.0); LYMPHOCYTES # (AUTO) 1.6 K/uL (2.5-16.5); LYMPHOCYTES % (AUTO) 38.1 % (20.5-51.1); MEAN CORPUSCULAR HEMOGLOBIN 27 pg (27-31); MEAN CORPUSCULAR HGB CONC 33 g/dL (33-37); MEAN CORPUSCULAR VOLUME 81.9 fL (80-94); MONOCYTES # (AUTO) 0.4 K/uL (0.8-1.0); MONOCYTES % (AUTO) 9.5 % (1.7-9.3); NEUTROPHILS # (AUTO) 2.1 K/uL (1.8-7.7); NEUTROPHILS % (AUTO) 51.7 % (42.2-75.2); PLATELET COUNT (AUTO) 204 K/uL (140-450); WHITE BLOOD COUNT (AUTO) 4.1 K/uL (4.8-10.8)
--- NOTE | 2021-03-31 09:04 | NUR ---
ALL SCHEDULED MEDS GIVEN. PT IS STABLE. NO DISTRESS NOTED. WILL CONTINUE TO MONITOR.
[2021-03-31 09:08] LABS: ALBUMIN 3.7 g/dL (3.4-5.0); ANION GAP 14.2 (8-16); CARBON DIOXIDE 25.5 mmol/L (21-32); CREATININE 0.6 mg/dL (0.6-1.3); MAGNESIUM 2.1 mg/dL (1.8-2.4); POTASSIUM 3.7 mmol/L (3.5-5.1); TOTAL BILIRUBIN 0.3 mg/dL (0.0-1.0)
[2021-03-31 10:17] LABS: PROTHROMBIN TIME 10.3 secs (10.8-13.4)
[2021-03-31] MEDS: NACL 0.9% 1,000 ML IV SCH ×2 (10:58→23:05)
--- NOTE | 2021-03-31 11:45 | NUR ---
CHECKED ON PATIENT. PT IS STABLE. DENIES PAIN OR SOB. NO S/S OF DISTRESS NOTED. WILL CONTINUE TO MONITOR.
[2021-03-31 12:00] VITALS: BP 128/80
[2021-03-31] MEDS: REMDESIVIR. 100 MG in NACL 0.9% 100 ML IV SCH ×2 (12:21→12:46)
--- NOTE | 2021-03-31 15:14 | NUR ---
ALL SCHEDULED MEDICATIONS GIVEN. PT IS STABLE. DENIES PAIN OR SOB. NO S/S OF DISTRESS NOTED. WILL CONTINUE TO MONITOR.
[2021-03-31 16:00] VITALS: BP 130/82
--- NOTE | 2021-03-31 17:10 | NUR ---
CHECKED ON PATIENT. PATIENT IS STABLE SITTING ON HER CHAIR. NO S/S OF RESPIRATORY DISTRESS. WILL CONTINUE TO MONITOR.
--- NOTE | 2021-03-31 19:34 | NUR ---
ENDORSED TO PASSPORT APPLICATION EXAMINER NURSE FOR CONTINUITY OF CARE. PT IS STABLE.
--- NOTE | 2021-03-31 19:35 | NUR ---
RECEIVED BEDSIDE ENDORSEMENT FROM AM SHIFT RN. PATIENT IS SITTING ON A CHAIR, ON ROOM AIR, NO SOB, AAOX4, AMBULATORY, IVF INFUSING, SAFETY MEASURES IN PLACE, DROPLET ISO IN PLACE, PLAN OF CARE DISCUSSED, WILL MONITOR, CALL LIGHT WITHIN REACH.
[2021-03-31 20:00] VITALS: BP 137/84
[2021-03-31] MEDS: ACETAMINOPHEN 325 MG TAB PO PRN (20:41)
--- NOTE | 2021-03-31 20:41 | NUR ---
C/O HEADACHE 3/10, RELAXATION ENCOURAGED, TYLENOL GIVEN ORDERED, KEPT COMFORTABLE, WILL MONITOR.
[2021-04-01] VITALS: BP 138/85
[2021-04-01] MEDS ORDERED: ZOLPIDEM 5 MG TAB PO PRN (00:15)
--- NOTE | 2021-04-01 01:09 | NUR ---
REQUESTED FOR SLEEPING PILL, RAMÍREZ GIVEN PRN INSOMNIA ORDERED, CALL LIGHT WITHIN REACH, KEPT COMFORTABLE.
[2021-04-01 04:00] VITALS: BP 124/70
[2021-04-01] MEDS: NACL 0.9% 1,000 ML IV SCH (04:34)
--- NOTE | 2021-04-01 05:17 | NUR ---
ROCEPHIN IV GIVEN ORDERED, TOLERATED WELL, CALL LIGHT WITHIN REACH.
--- NOTE | 2021-04-01 07:29 | NUR ---
PATIENT STABLE, NO SOB, ENDORSED AT BEDSIDE TO AM SHIFT RN.
--- NOTE | 2021-04-01 07:30 | NUR ---
RECEIVED REPORT FROM COOK TORTILLA NURSE FOR CONTINUITY OF CARE. A&OX4, ABLE TO MAKE NEEDS KNOWN. RESPIRATIONS EVEN AND UNLABORED. ON RA WITH BREATHING UNLABORED. NO S/S OF RESPIRATORY DISTRESS NOTED. PT IS AMBULATORY INDEPENDENTLY. SKIN IS WARM, DRY, AND INTACT. IV IS IN THE LEFT WRIST 22 GAUGE INFUSING FLUIDS WELL. PT IS STABLE AT THIS TIME AND DENIES PAIN. PLAN OF CARE DISCUSSED. DROPLET PRECAUTIONS IN PLACE. SAFETY PRECAUTIONS IN PLACE. CALL LIGHT WITHIN REACH. WILL CONTINUE TO MONITOR.
[2021-04-01 08:00] VITALS: BP 125/75
[2021-04-01] MEDS: MULTIVITAMIN/MINERALS 1 TAB PO SCH (09:04)
[2021-04-01] MEDS: ASCORBIC ACID 500 MG TAB PO SCH (09:04)
[2021-04-01] MEDS: VITAMIN D 400 IU TAB PO SCH (09:04)
--- NOTE | 2021-04-01 09:10 | NUR ---
ALL SCHEDULED MEDS GIVEN. PT IS STABLE. NO DISTRESS NOTED. DENIES PAIN. WILL CONTINUE TO MONITOR.
[2021-04-01 10:10] LABS: BASOPHILS % (AUTO) 0.2 % (0.0-2.0); EOSINOPHILS % (AUTO) 0.4 % (0.0-4.0); HEMOGLOBIN 9.9 g/dL (12.0-16.0); LYMPHOCYTES # (AUTO) 1.5 K/uL (2.5-16.5); LYMPHOCYTES % (AUTO) 39.1 % (20.5-51.1); MEAN CORPUSCULAR HEMOGLOBIN 27 pg (27-31); MEAN CORPUSCULAR HGB CONC 33 g/dL (33-37); MEAN CORPUSCULAR VOLUME 82.3 fL (80-94); MONOCYTES # (AUTO) 0.4 K/uL (0.8-1.0); MONOCYTES % (AUTO) 10.6 % (1.7-9.3); NEUTROPHILS # (AUTO) 1.9 K/uL (1.8-7.7); NEUTROPHILS % (AUTO) 49.7 % (42.2-75.2); PLATELET COUNT (AUTO) 263 K/uL (140-450); RED BLOOD CELL COUNT(AUTO) 3.65 MIL/uL (4.20-5.40); RED CELL DISTRIBUTION WIDTH 14.2 % (11.6-13.7); WHITE BLOOD COUNT (AUTO) 3.9 K/uL (4.8-10.8)
[2021-04-01 10:22] LABS: PROTHROMBIN TIME 11.1 secs (10.8-13.4)
[2021-04-01 10:30] LABS: ALBUMIN 3.5 g/dL (3.4-5.0); ANION GAP 13.2 (8-16); CARBON DIOXIDE 26.4 mmol/L (21-32); CREATININE 0.5 mg/dL (0.6-1.3); MAGNESIUM 2.1 mg/dL (1.8-2.4); POTASSIUM 3.6 mmol/L (3.5-5.1); TOTAL BILIRUBIN 0.3 mg/dL (0.0-1.0)
[2021-04-01 12:00] VITALS: BP 127/78
[2021-04-01] MEDS: REMDESIVIR. 100 MG in NACL 0.9% 100 ML IV SCH (12:16)
--- NOTE | 2021-04-01 12:30 | NUR ---
ALL SCHEDULED MEDS GIVEN. PT IS STABLE. NO DISTRESS NOTED. WILL CONTINUE TO MONITOR.
--- NOTE | 2021-04-01 15:38 | NUR ---
RECEIVED NEW DISCHARGE ORDER FROM MD. WILL ENDORSE DISCHARGE INSTRUCTIONS TO PATIENT.
[2021-04-01] MEDS ORDERED: VITC500 PO (15:41)
[2021-04-01] MEDS ORDERED: DEC4 PO (15:41)
[2021-04-01] MEDS ORDERED: VITD400 PO (15:41)
[2021-04-01 16:00] VITALS: BP 121/71
[2021-04-01 16:38] VITALS: BP 121/71
--- NOTE | 2021-04-01 17:20 | NUR ---
ENDORSED DISCHARGE INSTRUCTIONS TO PATIENT. PT VERBALIZED UNDERSTANDING AND SIGNED DISCHARGE FORMS.
--- NOTE | 2021-04-01 17:45 | NUR ---
PATIENT DISCHARGED OFF THE UNIT. PICKED UP BY AT THE FRONT LOBBY. IV CATH AND ID BAND REMOVED. PT WAS STABLE PRIOR TO DISCHARGE.
== END 2021-04-01 17:45 | disposition home or self-care (01) | DRG 137 ==
LOC: MED 20:05 → MTU 03-27 06:40 → OBSVTOIN 03-28 15:47
PROVIDERS: ADMIT Hospitalist; ATTEND Hospitalist
PROC: XW033E5 Introduction of Remdesivir Anti-infective into Peripheral Vein, Percutaneous Approach, New Technology Group 5 (ICD-10-PCS; principal; 2021-03-30)
DX: U07.1 COVID-19 (principal); N17.0 Acute kidney failure with tubular necrosis; J12.82 Pneumonia due to coronavirus disease 2019; I95.9 Hypotension, unspecified; E86.0 Dehydration
CPT/HCPCS: G0378 ×33; 36415; 71045; 80053; 81001; 83036; 83605; 83735; 83880; 84484; 85025; 85610; 87040; 87081; 87086; 93005; J0696; J2270; J7060; P9046